=== PATIENT | male | born 1960 | race Caucasian/White ===

== ENCOUNTER 2016-08-04 11:53 | Emergency (ER) | payer SELFPAY ==
[2016-08-04 12:03] VITALS: BP 152/93; PULSE 64; RESP 18; TEMP 98.4; O2SAT 97
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
[2016-08-04] MEDS ORDERED: CYCL1TAB29 PO (14:41)
[2016-08-04] MEDS ORDERED: IBUP-1129 PO (14:41)
[2016-08-04 15:11] VITALS: BP 143/77
== END 2016-08-04 15:38 | disposition home or self-care (01) ==
LOC: NEPC 11:53
DX: S40.029A Contusion of unspecified upper arm, initial encounter (principal); S50.312A Abrasion of left elbow, initial encounter; V17.0XXA Pedal cycle driver injured in collision with fixed or stationary object in nontraffic accident, initial encounter; Y93.55 Activity, bike riding; Y92.410 Unspecified street and highway as the place of occurrence of the external cause
CPT/HCPCS: 71010; 73080; 99283

== ENCOUNTER 2016-10-24 16:28 | Emergency (ER) | payer SELFPAY ==
[~2016-10-24] VITALS: Ht 182.9 cm; Wt 80.0 kg
[~2016-10-24 16:28] MED LIST: CYCL1TAB29 PO; IBUP-1129 PO
[2016-10-24 16:30] VITALS: BP 155/76; PULSE 68; RESP 20; TEMP 98.6; O2SAT 98
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
[2016-10-24 20:30] LABS: AUTOMATED NEUTROPHIL # 4.3 TH/MM3 (1.8-7.7); BASOPHIL % 0.5 % (0.0-2.0); EOSINOPHIL # 0.3 TH/MM3 (0-0.4); EOSINOPHIL % 3.3 % (0.0-4.0); HEMATOCRIT 40.9 % (39.0-51.0); HEMO FLAGS DIFF FINAL; LYMPH % 31.4 % (9.0-44.0); LYMPHOCYTE # 2.4 TH/MM3 (1.0-4.8); MEAN CELL VOLUME 89.3 FL (80.0-100.0); MEAN CORPUSCULAR HEMOGLOBIN 31.1 PG (27.0-34.0); MEAN CORPUSCULAR HGB CONC 34.9 % (32.0-36.0); MONO % 8.5 % (0.0-8.0); NEUT % 56.3 % (16.0-70.0); PLATELET COUNT 274 TH/MM3 (150-450); RED BLOOD COUNT 4.59 MIL/MM3 (4.50-5.90); RED CELL DISTRIBUTION WIDTH 13.1 % (11.6-17.2); WHITE BLOOD COUNT 7.7 TH/MM3 (4.0-11.0)
[2016-10-24 20:40] LABS: BICARBONATE 22.1 MEQ/L (21.0-32.0); POTASSIUM 3.8 MEQ/L (3.5-5.1)
== END 2016-10-24 20:54 | disposition home or self-care (01) ==
LOC: NEPD 16:28
DX: K13.0 Diseases of lips (principal); R53.83 Other fatigue
CPT/HCPCS: 80048; 85025; 99283